=== PATIENT | female | born 1980 | race Caucasian/White ===

== ENCOUNTER 2020-12-05 06:13 | Inpatient (IN) | payer OTHER ==
[2020-12-05] VITALS (41 sets, daily range): BP systolic 73–155; BP diastolic 43–94; PULSE 68–115; TEMP 97.6–98.8
[~2020-12-05] VITALS: Ht 154.9 cm; Wt 82.7 kg
--- NOTE | 2020-12-05 06:25 | NUR ---
0625- 39.4 G8 L5. AMBULATORY ON UNIT FOR SCHEDULED IOL. ORIENTED TO ROOM AND PLAN OF CARE. REPORTS NORMAL MOVEMENT. DENIES REGULAR CONTRACTIONS. LOVF. 0650- IV TO . ROUTINE LABS OBTAINED. HR WITH MODERATED VARIABLITY, NO ACCELS. LR BOLUS INFUSING. REPOSITIONED IN BED. ASSESSMENT COMPLETED. CONSENTS GIVEN AND SIGNED. 0723- ROLES TO BEDSIDE, REVIEWS PLAN OF CARE. AROM FOR CLEAR FLUID. FSE EXPLAINED AND PLACED. PERICARE AND PT WEDGED LEFT.
[2020-12-05 07:18] LABS: HEMOGLOBIN 10.7 g/dl (12.5-16.0); MEAN CELL VOLUME 87 fl (80.0-100.0); MEAN CORPUSCULAR HEMOGLOBIN 29 pg (27.0-31.0); MEAN CORPUSCULAR HGB CONC 34 g/dl (33.0-37.0); MEAN PLATELET VOLUME 10.2 fl (7.4-10.4); PLATELET COUNT 237 K/mm3 (130-400); RED BLOOD COUNT 3.64 M/mm3 (4.10-5.30)
[2020-12-05 07:20] LABS: HEMATOCRIT 31.5 % (37.0-47.0)
--- NOTE | 2020-12-05 07:30 | NUR ---
0730- R reactive. Pitocin expained and started at 2mu per orders.
[2020-12-05] MEDS ORDERED: PRENATAL TABLET PO (07:39)
[2020-12-05] MEDS ORDERED: SLOW FE142 MG PO (07:39)
--- NOTE | 2020-12-05 08:00 | NUR ---
Patient declines covid test.
[2020-12-05 08:10] LABS: BAND 7 % (0-10); BASOPHIL 1 % (0-2); EOSINOPHIL 4 % (0-4); LYMPHOCYTE 25 % (20.0-51.0); NEUTROPHILS 57 % (42.0-75.2); PLATELET ESTIMATE NORMAL (NORMAL)
--- NOTE | 2020-12-05 09:25 | NUR ---
0925- Blood pressure noted to be 86/53. LR bolus infusing. Repeat blood pressure 74/43. Patient asymptomatic. 0935- Ephedrine 10mg given IVP. Patient with N/V. LR bolus continues. Blood pressure 130/70.
--- NOTE | 2020-12-05 10:45 | NUR ---
VARIABLE AND EARLY DECELS NOTED.
--- NOTE | 2020-12-05 11:30 | NUR ---
1130- RECURRENT EARLY DECELS. INTERMITTENT VARIABLE DECELS. SVE AL/0. 1131- DR. WARE NOTIFIED. SEE PHYSICIAN NOTIFICATION. 1145- DR. WARE TO BEDSIDE. SVE PER PROVIDER AL. PT INSTRUCTED TO PUSH WITH CONTRACTION. ANT LIP REDUCED BY DR. WARE. 1147- SVE 10 CM PER PROVIDER. PT DENIES FEELING URGE TO PUSH. LABORING DOWN. DR. WARE REMAINS ON UNIT. 1221- DR. WARE TO BEDSIDE. PT BEGINS TO PUSH WITH CONTRACTIONS WITH DR. WARE AT BEDSIDE. STRONG MATERNAL EFFORT, MOVES VERTEX WELL. 1224- SPONTANEOUS VAGINAL DELIVERY OF VIABLE FEMALE . TO MOTHERS CHEST. DRIED AND STIMULATED BY NURSERY RN. PITOCIN PAUSED. 1225- CORD CLAMPED X2 AND CUT BY FATHER OF BABY. CARE OF ASSUMED BY Luz RN. 1226- SPONTANEOUS AND INTACT DELIVERY OF PLACENTA. PITOCIN RESUMED AT 333 ML/HR PER ORDERS. PERINEUM INTACT. RACIEL CARE PROVIDED. PADS CHANGED. FREE FLOW NOTED. FUNDUS FIRM, MIDLINE. LARGE AMOUNT OF LOCHIA NOTED. PADS WEIGHED FOR [address] WARE AT NURSES DESK AND NOTIFIED. SEE DOCTOR DICTATION, ANESTHESIA RECORD, AND NURSES NOTES. 1230- FUNDUS FIRM, MIDLINE. BLEEDING SCANT. DR. WARE UPDATED. PLAN OF CARE AND SAFETY PRECAUTIONS REVIEWED. PT VERBALIZES UNDERSTANDING. RESTING WITH CALL LIGHT WITHIN REACH.
[2020-12-06 05:06] VITALS: BP 105/66; PULSE 73; TEMP 98.2
[2020-12-06 08:22] VITALS: BP 136/68; PULSE 68; TEMP 98.1
--- NOTE | 2020-12-06 10:56 | NUR ---
Initial visit; Parents thanked Screen Stretcher for offering congratulations and [employer] blecoco for the of their daughter. Screen Stretcher thanked family for choosing [facility].
[2020-12-06] MEDS ORDERED: PERCOCET 325 MG1 TA2 PO (12:25)
[2020-12-06] MEDS ORDERED: IBU600 MG PO (12:25)
== END 2020-12-06 15:37 | disposition home or self-care (01) | DRG 807 ==
LOC: LDR 06:13 → OB 06:13
PROVIDERS: ADMIT Obstetrics & Gynecology
PROC: 10E0XZZ Delivery of Products of Conception, External Approach (ICD-10-PCS; principal; 2020-12-05)
PROC: 10907ZC Drainage of Amniotic Fluid, Therapeutic from Products of Conception, Via Natural or Artificial Opening (ICD-10-PCS; 2020-12-05)
PROC: 3E033VJ Introduction of Other Hormone into Peripheral Vein, Percutaneous Approach (ICD-10-PCS; 2020-12-05)
PROC: 0HQ9XZZ Repair Perineum Skin, External Approach (ICD-10-PCS; 2020-12-05)
DX: O70.0 First degree perineal laceration during delivery (principal); Z37.0 Single live birth; Z3A.39 39 weeks gestation of pregnancy
CPT/HCPCS: J2405; J2590; J7120

== ENCOUNTER 2024-02-13 06:03 | Inpatient (IN) | payer OTHER ==
[~2024-02-13] VITALS: Ht 165.1 cm; Wt 85.5 kg
[2024-02-13] VITALS (38 sets, daily range): BP systolic 89–153; BP diastolic 53–96; PULSE 71–103; TEMP 97.6–98.6
[~2024-02-13 06:03] MED LIST: IBU600 MG PO; PERCOCET 325 MG1 TA2 PO; PRENATAL TABLET PO; PROCARDIA XL 6060 MG PO; SLOW FE142 MG PO
[2024-02-13] MEDS ORDERED: LR 1,000 ML IV SCH (06:45)
[2024-02-13] MEDS ORDERED: ePHEDrine 50 MG/10 ML VIAL IV PRN (07:00)
[2024-02-13] MEDS ORDERED: Ondansetron 4 MG/2 ML VIAL IV PRN (07:00)
[2024-02-13] MEDS ORDERED: CRANBERRY215 MG PO (07:00)
[2024-02-13] MEDS ORDERED: Naloxone 0.4 MG/ML VIAL IV PRN ×2 (07:00→14:15)
[2024-02-13] MEDS ORDERED: diphenhydrAMINE 50 MG/ML 1 ML VIAL IV PRN (07:00)
[2024-02-13] MEDS ORDERED: diphenhydrAMINE 25 MG CAP PO PRN (07:00)
[2024-02-13] MEDS ORDERED: FERRETTS I40 MG/15 M PO (07:00)
[2024-02-13 07:02] LABS: HEMOGLOBIN 10.2 g/dl (12.5-16.0); MEAN CELL VOLUME 88 fl (80.0-100.0); MEAN CORPUSCULAR HEMOGLOBIN 28 pg (27-31); MEAN CORPUSCULAR HGB CONC 32 g/dl (33.0-37.0); MEAN PLATELET VOLUME 9.7 fl (7.4-10.4); PLATELET COUNT 262 K/mm3 (130-400); REDCELL DISTRIBUTION WIDTH-CV 13.7 % (11.5-14.5)
[2024-02-13 07:20] LABS: HEMATOCRIT 31.5 % (37.0-47.0)
[2024-02-13 08:02] LABS: EOSINOPHIL 1 % (0-4); LYMPHOCYTE 21 % (20.0-51.0); METAMYELOCYTE 1 % (0-0); NEUTROPHILS 71 % (42.0-75.2); NUCLEATED RED BLOOD CELL 1 (0-6); PLATELET ESTIMATE NORMAL (NORMAL)
--- NOTE | 2024-02-13 08:15 | NUR ---
UNABLE TO TRACE EFM ACCELERATIONS AND/OR DECELERATIONS ON MONITOR DUE TO MATERNAL POSITION AND HABITUS. THIS RN AT PT BEDSIDE ATTEMPTING TO TRACE. PT VS STABLE, AWAKE AND ALERT X3.
[2024-02-13] MEDS ORDERED: ROPivacaine PF 0.2% 200 ML IV ONE (08:40)
--- NOTE | 2024-02-13 08:50 | NUR ---
0842 [facility] AIDE IN PT ROOM EDUCATING AND DISCUSSING EPIDURAL PROCEDURE WITH PT AND PT SPOUSE. EFM CAT 1, PT VS STABLE, FLUID BOLUS 500ML COMPLETE, PT AWAKE AND ALERT X3. 0850 SINGLE SHOT ADMINISTERED PER [facility] AIDE, PT TOLERATED WELL. PT VS STABLE, REPOSITIONED WEDGE RIGHT COMFORTABLY. PT DENIES DIZZINESS, NAUSEA, OR PAIN. PT SPOUSE SUPPORTIVE AT BEDSIDE. EFM CAT 1 ONCE PT REPOSITIONED, ADEQUATE ACCELS, NO DECELS, MODERATE VARIABILITY. PT AWAKE AND ALERT X3
--- NOTE | 2024-02-13 09:00 | NUR ---
UNABLE TO TRACE EFM AT THIS TIME TO DUE MATERNAL SITTING IN CHAIR POSITION DURING EPIDURAL PROCEDURE. PT VS STABLE, AWAKE AND ALERT X3. THIS RN AT PT BEDSIDE, PT SPOUSE SUPPORTIVE AT BEDSIDE.
--- NOTE | 2024-02-13 09:45 | NUR ---
UNABLE TO TRACE TOCO CONTRACTIONS ON MONITOR DUE TO PT POSITION AND HABITUS. THIS RN AT PT BEDSIDE ATTEMPTING TO TRACE. PT VS STABLE, AWAKE AND ALERT X3
[2024-02-13] MEDS ORDERED: LR & Oxytocin 500 ML IV SCH ×2 (12:15)
--- NOTE | 2024-02-13 14:01 | NUR ---
1245 AT PT BEDSIDE, AROM WITH GUSH OF CLEAR FLUID, SVE 10/100/0. CALLED CHARGE NURSE AND NURSERY NURSE OF COMPLETE CERVICAL EXAM. ROOM SET FOR DELIVERY. EFM CAT 1, PT VS STABLE, PT AWAKE AND ALERT X3. PT SPOUSE SUPPORTIVE AT BEDSIDE. ORDERS TO PASSIVE DESCEND AT THIS TIME, THIS RN REMAINS AT PT BEDSIDE TO MONITOR. 1335 , CHARGE NURSE, NURSERY NURSE, AND THIS RN AT PT BEDSIDE FOR DELIVERY. PT VERBALLY UNDERSTANDING ON PUSHING EDUCATION AND BEGINS TO PUSH. PT SPOUSE SUPPORTIVE AT BEDSIDE. PT VS STABLE, EFM CAT 1. 1401 OF VIABLE FEMALE PER . BABY CORD CLAMPED AND CUT, INFANT PLACED ON MATERNAL CHEST AND CARE OF BABY ASSUMED OVER TO NURSERY NURSE. PT VS STABLE, AWAKE AND ALERT X3. PT SPOUSE CUT CORD AND SUPPORTIVE AT BEDSIDE. 1404 OF PLACENTA AND NO REPAIRS NEEDED PER . PITOCIN PER PROTOCOL STARTED, FUNDUS FIRM AT UMBILICUS, SCANT LOCHIA, NO CLOTS. PT VS STABLE, AWAKE AND ALERT X3, PT DOES NOT REPORT ANY PAIN AT THIS TIME. 1410 ROOM CLEANED AFTER DELIVERY, PT REPOSITIONED COMFORTABLY WITH ICE PACK PAD ON PERINEUM. PT FUNDUS FIRM AT UNBILICUS, SCANT LOCHIA, NO CLOTS, PT DENIES PAIN AT THIS TIME. PT INFANT ON MATERNAL CHEST AND SPOUSE SUPPORTIVE AT BEDSIDE. PT VS STABLE AND AWAKE AND ALERT X3.
[2024-02-13] MEDS ORDERED: oxyCODONE 5 MG TAB PO PRN (14:15)
[2024-02-13] MEDS ORDERED: Phenylephrine/Mineral Oil/Petrolatum 57 GM TUBE RC PRN (14:15)
[2024-02-13] MEDS ORDERED: Mag/Al Hydrox/Simeth Susp 30 ML CUP PO PRN (14:15)
[2024-02-13] MEDS ORDERED: Ibuprofen 800 MG TAB PO SCH (14:15)
[2024-02-13] MEDS ORDERED: Loratadine 10 MG TAB PO PRN (14:15)
[2024-02-13] MEDS ORDERED: Witch Hazel 50% Pads Bulk TUB TP PRN (14:15)
[2024-02-13] MEDS ORDERED: Magnes Hydrox (MOM) 80 MG/ML 30 ML CUP PO PRN (14:15)
[2024-02-13] MEDS ORDERED: Measles/Mumps/Rubella Virus Vaccine Live w Diluent 0.5 ML VIAL SQ SCH (14:15)
[2024-02-13] MEDS ORDERED: Acetaminophen 500 MG TAB PO SCH (14:15)
[2024-02-13] MEDS ORDERED: Sennosides/Docusate 8.6-50 MG TAB PO SCH (17:00)
--- NOTE | 2024-02-13 17:00 | NUR ---
THIS RN AT PT BEDSIDE, HELPS PT TO DANGLE AT EDGE OF BED, PT DENIES DIZZINESS AND NAUSEA, PT VS STABLE. EPIDURAL CATHETER REMOVED, NO BLEEDING, TIP IN TACT, PT TOLERATED WELL. PT TRANSFERED TO BATHROOM VIA KASSANDRA STEADY AND VOIDED AND CLEANED. PT AWAKE AND ALERT X3. PT GOWN CHANGED, BRIEF ON WITH ICE PACK PAD TO PERINEUM. FUNDUS FIRM AT UMBILICUS WITH SCANT LOCHIA, NO CLOTS. PT TRANSFERED VIA SARASTEADY TO ROOM. PT REPOSITIONED COMFORTABLY ON BED, PACKET GIVEN AND PT AND SPOUSE EDUCATED ON PAPERS AND INFORMATION INSIDE PER THIS RN, PT AND SPOUSE VERBALLY UNDERSTANDING. PT AND SPOUSE EDUCATED ON BLOOD SUGARS BEFORE BREAST FEEDING. PT VS STABLE, AWAKE AND ALERT X3, DENIES PAIN AT THIS TIME.
[2024-02-13] MEDS ORDERED: traZODone 50 MG TAB PO PRN (21:00)
[2024-02-14] VITALS: BP 140/72; PULSE 80; TEMP 98.2
[2024-02-14] MEDS ORDERED: oxyCODONE/Acetaminophen 5-325 MG TAB PO PRN (02:45)
[2024-02-14] MEDS ORDERED: Acetaminophen 325 MG TAB PO ONE (03:30)
[2024-02-14 08:00] VITALS: BP 155/84; PULSE 98; TEMP 97.8
[2024-02-14] MEDS ORDERED: Prenatal Vitamins/Iron/FA TAB PO SCH (09:00)
[2024-02-14] MEDS ORDERED: PERCOCET 325 MG1 TA2 PO (13:25)
[2024-02-14] MEDS ORDERED: MOTRIN 800800 MG/TAB PO (13:25)
== END 2024-02-14 17:00 | disposition home or self-care (01) | DRG 560 ==
LOC: OB 06:03 → LDR 06:03 → OB 10:05
PROVIDERS: ADMIT Obstetrics & Gynecology
PROC: 10E0XZZ Delivery of Products of Conception, External Approach (ICD-10-PCS; principal; 2024-02-13)
PROC: 10907ZC Drainage of Amniotic Fluid, Therapeutic from Products of Conception, Via Natural or Artificial Opening (ICD-10-PCS; 2024-02-13)
PROC: 3E033VJ Introduction of Other Hormone into Peripheral Vein, Percutaneous Approach (ICD-10-PCS; 2024-02-13)
DX: O24.420 Gestational diabetes mellitus in childbirth, diet controlled (principal); Z37.0 Single live birth; O99.214 Obesity complicating childbirth; Z3A.39 39 weeks gestation of pregnancy
CPT/HCPCS: J2590; J2795; J7120